=== PATIENT | male | born 1945 | race Caucasian/White ===

== ENCOUNTER 2019-02-04 09:58 | Inpatient (IN) ==
[2019-02-04] MEDS ORDERED: CeFAZolin Syr 2,000MG/20 ML 2,000 MG/20 ML SYRINGE IVPB ONE (10:11)
[2019-02-04] MEDS ORDERED: Ringers Solution, Lactated 1,000 ML IVC SCH (10:15)
[2019-02-04] MEDS ORDERED: *HR* Promethazine 25 MG/ML VIAL IVP PRN (10:32)
[2019-02-04] MEDS ORDERED: *HR* HYDROmorphone (PF) 1 MG/ML SYRINGE IVP PRN (10:32)
[2019-02-04] MEDS ORDERED: *HR* OxyCODONE Immed Rel 5 MG TABLET PO PRN (10:32)
[2019-02-04] MEDS ORDERED: Ondansetron 4 MG/2 ML VIAL IVP ONE (10:32)
[2019-02-04] MEDS ORDERED: *HR* FentaNYL (PF) 100 MCG/2 ML VIAL ONE (11:29)
[2019-02-04] MEDS ORDERED: *HR* Midazolam HCl 2 MG/2 ML VIAL ONE (11:29)
[2019-02-04] MEDS ORDERED: *HR* Propofol 200 MG/20 ML VIAL IVP ONE (11:29)
[2019-02-04] MEDS ORDERED: *HR* Rocuronium Bromide 50 MG/5 ML VIAL ONE (11:32)
[2019-02-04] MEDS ORDERED: Lidocaine HCL 4 ML Topical Solution (Laryng-O-Jet Kit Sterile Pak) TP ONE (11:32)
[2019-02-04] MEDS ORDERED: *HR* Succinylcholine 200 MG/10 ML VIAL IVP ONE (11:32)
[2019-02-04] MEDS ORDERED: Lidocaine -MPF 2% 2 ML VIAL ONE (11:32)
[2019-02-04] MEDS ORDERED: Ondansetron 4 MG/2 ML VIAL ONE (11:32)
[2019-02-04] MEDS ORDERED: *HR* Phenylephrine 10 MG/ML VIAL ONE (11:35)
[2019-02-04] MEDS ORDERED: EPHEDrine 50 MG/ML VIAL ONE (11:37)
[2019-02-04] MEDS ORDERED: Ropivacaine/PF 0.5% 30 ML VIAL ONE (11:58)
[2019-02-04] MEDS ORDERED: ROPIVACAINE/PF/NS 0.25% 1 EACH SYRINGE INTRAART ONE (11:58)
[2019-02-04] MEDS ORDERED: Ethanol\\Acetic Acid\\Na Ace\\Ben 1,000 ML IRRIG.SOLN IR ONE (12:03)
[2019-02-04] MEDS ORDERED: Dexamethasone 4 MG/ML VIAL ONE (13:31)
[2019-02-04] MEDS ORDERED: Albuterol 2.5 MG/3 ML NEBULIZER ONE (15:10)
[2019-02-04 15:31] LABS: Hematocrit 41.1 % (37.5-50.1)
[2019-02-04 15:34] LABS: Hemoglobin 13.6 g/dL (12.9-16.9)
[2019-02-04] MEDS ORDERED: Temazepam 15 MG CAPSULE PO PRN (16:00)
[2019-02-04] MEDS ORDERED: Sennosides 8.6 MG TABLET PO PRN (16:00)
[2019-02-04] MEDS ORDERED: MOM Conc 10 ML UD.LIQ PO PRN (16:00)
[2019-02-04] MEDS ORDERED: Naloxone 0.4 MG/ML INJ IVP PRN (16:00)
[2019-02-04] MEDS ORDERED: Ondansetron 4 MG/2 ML VIAL IVP PRN (16:00)
[2019-02-04] MEDS: *HR* Enoxaparin 30 MG/0.3 ML SYRINGE SQ SCH (17:51)
[2019-02-04] MEDS: carvediloL 25 MG TABLET PO SCH (17:51)
[2019-02-04] MEDS: Gabapentin 300 MG CAPSULE PO PRN (17:52)
[2019-02-04] MEDS: *HR* OxyCODONE Immed Rel 5 MG TABLET PO PRN (17:52)
[2019-02-04] MEDS: Clindamycin 900 MG/50 ML 900 MG/50 ML IV.SOLN IVPB SCH ×2 (17:53→23:15)
[2019-02-04] MEDS ORDERED: *HR* Enoxaparin 30 MG/0.3 ML SYRINGE SQ SCH (18:00)
[2019-02-04] MEDS: Cholecalciferol (D-3) 1,000 UNIT (25MCG) TABLET PO SCH (20:04)
[2019-02-05 01:43] LABS: Hematocrit 40.8 % (37.5-50.1); Hemoglobin 13.4 g/dL (12.9-16.9)
[2019-02-05 02:03] LABS: BUN/Creatinine Ratio 23 (6-26); Blood Urea Nitrogen 20 mg/dL (8-23); Calcium 9.1 mg/dL (8.6-10.3); Carbon Dioxide 29 mEq/L (23-29); Chloride 98 mEq/L (98-107); Glucose 197 mg/dL (70-105); Osmolality,Calculated 290 (280-300); Potassium 4.5 mEq/L (3.5-5.1); Sodium 136 mEq/L (136-145); eGFR For African Americans > 60 (> 60); eGFR For Non-African Americans > 60 (> 60)
[2019-02-05] MEDS: *HR* Enoxaparin 30 MG/0.3 ML SYRINGE SQ SCH ×2 (05:33→17:13)
[2019-02-05] MEDS: Tiotropium 18 MCG inhalation IH SCH (07:38)
[2019-02-05] MEDS ORDERED: ARGININE 500 MG PO SCH (09:00)
[2019-02-05] MEDS ORDERED: ZINC SULFATE 66 MG PO SCH (09:00)
[2019-02-05] MEDS ORDERED: FLAXSEED OIL 1000 MG PO SCH (09:00)
[2019-02-05] MEDS: Gabapentin 300 MG CAPSULE PO PRN (09:19)
[2019-02-05] MEDS: *HR* OxyCODONE Immed Rel 5 MG TABLET PO PRN ×3 (09:19→21:28)
[2019-02-05] MEDS: Aspirin Enteric Coated 81 MG Tablet PO SCH (09:20)
[2019-02-05] MEDS: Multivit/Ca/Min/Fe/FA 1 TAB TABLET PO SCH (09:20)
[2019-02-05] MEDS: carvediloL 25 MG TABLET PO SCH ×2 (09:20→17:13)
[2019-02-05] MEDS: Cholecalciferol (D-3) 1,000 UNIT (25MCG) TABLET PO SCH ×2 (09:20→21:28)
[2019-02-05] MEDS: Ringers Solution, Lactated 1,000 ML IVC SCH ×2 (19:28→19:29)
[2019-02-06] MEDS: Acetaminophen IV 1,000 MG/100 ML INFUS..BTL IVPB PRN ×2 (00:01→20:30)
[2019-02-06] MEDS: Ketorolac 30 MG/ML VIAL IVP PRN ×2 (01:03→18:26)
[2019-02-06] MEDS: Gabapentin 300 MG CAPSULE PO PRN (01:11)
[2019-02-06] MEDS: *HR* OxyCODONE Immed Rel 5 MG TABLET PO PRN ×3 (02:32→21:24)
[2019-02-06 06:36] LABS: Hematocrit 36.4 % (37.5-50.1); Hemoglobin 12.2 g/dL (12.9-16.9)
[2019-02-06] MEDS: *HR* Enoxaparin 30 MG/0.3 ML SYRINGE SQ SCH ×2 (06:38→17:05)
[2019-02-06 06:54] LABS: BUN/Creatinine Ratio 37 (6-26); Blood Urea Nitrogen 26 mg/dL (8-23); Calcium 9.3 mg/dL (8.6-10.3); Carbon Dioxide 32 mEq/L (23-29); Chloride 99 mEq/L (98-107); Glucose 125 mg/dL (70-105); Osmolality,Calculated 292 (280-300); Potassium 4.2 mEq/L (3.5-5.1); Sodium 138 mEq/L (136-145); eGFR For African Americans > 60 (> 60); eGFR For Non-African Americans > 60 (> 60)
[2019-02-06] MEDS: Tiotropium 18 MCG inhalation IH SCH (07:18)
[2019-02-06] MEDS: carvediloL 25 MG TABLET PO SCH ×2 (09:17→17:03)
[2019-02-06] MEDS: Ringers Solution, Lactated 1,000 ML IVC SCH (09:17)
[2019-02-06] MEDS: Aspirin Enteric Coated 81 MG Tablet PO SCH (09:18)
[2019-02-06] MEDS: Cholecalciferol (D-3) 1,000 UNIT (25MCG) TABLET PO SCH ×2 (09:18→20:30)
[2019-02-06] MEDS: Multivit/Ca/Min/Fe/FA 1 TAB TABLET PO SCH (09:21)
[2019-02-06] MEDS: *HR* OxyCODONE/APAP 5/325 TABLET PO PRN ×2 (10:15→17:03)
[2019-02-07] MEDS: *HR* OxyCODONE Immed Rel 5 MG TABLET PO PRN ×4 (01:38→19:32)
[2019-02-07 05:05] LABS: Basophils % 0.4 %; Eosinophils # 0.1 K/mcL (0.0-0.6); Eosinophils % 1.9 %; Hematocrit 34.8 % (37.5-50.1); Hemoglobin 11.2 g/dL (12.9-16.9); Immature Granulocytes % 0.4 % (0-4); Lymphocytes # 1.4 K/mcL (0.6-4.6); Lymphocytes % 19.9 %; Mean Corpuscular HGB Conc 32.2 g/dL (31.6-35.5); Mean Corpuscular Volume 105.8 fL (83.0-100.0); Mean Platelet Volume 10.9 fL (9.4-12.4); Monocytes # 0.9 K/mcL (0.0-1.3); Monocytes % 12.4 %; Neutrophils # 4.7 K/mcL (1.6-8.9); Platelet Count 139 K/mcL (140-400); Red Blood Count 3.29 M/mcL (4.19-5.50); Red Cell Distribution Width 13.9 % (11.5-14.5); White Blood Count 7.2 K/mcL (4.3-11.1)
[2019-02-07 05:23] LABS: BUN/Creatinine Ratio 34 (6-26); Blood Urea Nitrogen 26 mg/dL (8-23); Carbon Dioxide 34 mEq/L (23-29); Chloride 100 mEq/L (98-107); Glucose 119 mg/dL (70-105); Osmolality,Calculated 284 (280-300); Potassium 4.5 mEq/L (3.5-5.1); Sodium 134 mEq/L (136-145); eGFR For African Americans > 60 (> 60); eGFR For Non-African Americans > 60 (> 60)
[2019-02-07] MEDS: *HR* Enoxaparin 30 MG/0.3 ML SYRINGE SQ SCH ×2 (06:22→16:55)
[2019-02-07] MEDS: Cholecalciferol (D-3) 1,000 UNIT (25MCG) TABLET PO SCH ×2 (09:48→21:17)
[2019-02-07] MEDS: carvediloL 25 MG TABLET PO SCH ×2 (09:48→16:55)
[2019-02-07] MEDS: Aspirin Enteric Coated 81 MG Tablet PO SCH (09:48)
[2019-02-07] MEDS: Gabapentin 300 MG CAPSULE PO PRN ×2 (09:48→15:12)
[2019-02-07] MEDS: Tiotropium 18 MCG inhalation IH SCH (09:54)
[2019-02-07] MEDS: Multivit/Ca/Min/Fe/FA 1 TAB TABLET PO SCH (15:11)
[2019-02-07] MEDS: Ketorolac 30 MG/ML VIAL IVP PRN (21:25)
[2019-02-08] MEDS: *HR* Enoxaparin 30 MG/0.3 ML SYRINGE SQ SCH (04:54)
[2019-02-08] MEDS: *HR* OxyCODONE Immed Rel 5 MG TABLET PO PRN ×2 (04:55→09:24)
[2019-02-08] MEDS: carvediloL 25 MG TABLET PO SCH (08:19)
[2019-02-08] MEDS: Multivit/Ca/Min/Fe/FA 1 TAB TABLET PO SCH (08:20)
[2019-02-08] MEDS: Cholecalciferol (D-3) 1,000 UNIT (25MCG) TABLET PO SCH (08:20)
[2019-02-08] MEDS: Aspirin Enteric Coated 81 MG Tablet PO SCH (08:20)
[2019-02-08] MEDS: Tiotropium 18 MCG inhalation IH SCH (08:29)
[2019-02-08 12:40] VITALS: BP 107/65
== END 2019-02-08 13:23 | disposition home health service (06) | DRG 483 ==
LOC: SAMDAY 09:58 → 3NENU 15:50
PROVIDERS: ADMIT Orthopaedic Surgery; ATTEND Orthopaedic Surgery